=== PATIENT | female | born 1950 | race Caucasian/White ===

== ENCOUNTER 2017-09-09 11:30 | Emergency (ER) | payer MEDICARE, OTHER ==
[~2017-09-09 11:30] MED LIST: CALC500T6 PO; CHOL10005 PO; IBUP-56 PO; MAGNESIUM PO; MULT-1335 PO; TUMERIC PO; Tumeric PO; VITA-131 PO
--- NOTE | 2017-09-09 11:45 | ER Report ---
History and Physical Time Seen By MD: 11:43 HPI/ROS CHIEF COMPLAINT: Head injury HISTORY OF PRESENT ILLNESS: Patient is a 67-year-old female who was leading a horse but not riding. The horse started to run and she was trampled she did hit her head and lost consciousness. She is also complaining of some right elbow pain. She denies any difficulty breathing. She denies any nausea or vomiting at this time. She denies chest pain. She denies abdominal pain. She denies pelvic pain. She denies any lower extremity pain. Last tetanus was less than 5 years ago. REVIEW OF SYSTEMS: Respiratory: No cough, no dyspnea. Cardiovascular: No chest pain, no palpitations. Gastrointestinal: No vomiting, no abdominal pain. Musculoskeletal: Headache, right elbow pain Allergies: Coded Allergies: No Known Allergies (Verified Allergy, Mild, 09/09/17) Home Meds Reported Medications [Magnesium] No Conflict Check, 400 MG PO DAILY 01/13/17 Vitamin B Complex (VITAMIN B COMPLEX) 1 Each Tablet, 1 EACH PO DAILY 01/13/17 Multivitamin With Minerals (MULTIPLE VITAMIN) 1 Each Tablet, 1 EACH PO DAILY, TAB 01/13/17 Cholecalciferol (Vitamin D3) (VITAMIN D3) 1,000 Unit Tablet, 1000 UNIT PO DAILY , TAB 01/13/17 Calcium Carbonate (CALCIUM) 500 Mg Tablet, 500 MG PO DAILY 01/13/17 Ibuprofen (IBUPROFEN) 200 Mg Tablet, 1-2 TAB PO PRN, TAB 01/13/17 [Tumeric] No Conflict Check, 1 TBS PO DAILY 01/13/17 Past Medical/Surgical History Noncontributory towards his chief complaint Hx Smoking: No Smoking Status: Never Smoker Exposure to Second Hand Smoke?: No Hx Alcohol Use: Yes Constitutional Vital Sign - Last 24 Hours 09/09/17 09/09/17 09/09/17 09/09/17 11:30 11:45 12:00 12:15 Temp 98.5 Pulse 66 59 Resp 16 10 B/P (MAP) 150/77 150/77 (101) 127/69 (88) Pulse Ox 92 92 O2 Delivery Room Air 09/09/17 09/09/17 09/09/17 09/09/17 12:20 12:30 12:35 12:40 Pulse 59 57 60 Resp 6 27 10 B/P (MAP) 137/65 (89) Pulse Ox 95 93 94 09/09/17 09/09/17 09/09/17 09/09/17 12:55 13:00 13:10 13:25 Pulse 57 53 53 Resp 13 14 17 B/P (MAP) 119/61 (80) Pulse Ox 92 96 96 09/09/17 09/09/17 13:30 13:40 Resp 23 B/P (MAP) 110/58 (75) Pulse Ox 96 Physical Exam General Appearance: The patient is alert, has no immediate need for airway protection and no signs of toxicity. He has a 0.5 cm scalp laceration at the vertex of the cranium minimal active bleeding Eyes: Pupils equal and round no pallor or injection. ENT, Mouth: Mucous membranes are moist. Respiratory: There are no retractions, lungs are clear to auscultation. Cardiovascular: Regular rate and rhythm. [ ] Gastrointestinal: Abdomen is soft and non tender, no masses, bowel sounds normal. Neurological: GCS is 15 Skin: Warm and dry, no rashes. Musculoskeletal: Neck is supple non tender. Right elbow pain [ ]AL DIAGNOSIS: After history and physical exam differential diagnosis was considered for] [ ] Medical Decision Making EKG/Imaging Imaging FACILITY: [facility] PATIENT NAME: Debby Chaudhary : 1950 MR: [id number] V: [id number] EXAM DATE: ORDERING PHYSICIAN: ALHAJI SAEZ TECHNOLOGIST: Location: [facility] - [place] Patient: Debby Chaudhary : 1950 Visit/Account:[id number] Date of Sevice: 09/09/2017 EXAMINATION: CT Head without intravenous contrast CT Cervical spine without intravenous contrast HISTORY: Trauma. TECHNIQUE: Head: Axial images were obtained from the skull base to the vertex without intravenous contrast. Sagittal and coronal reformatted images are also submitted. Cervical spine: Axial images were obtained from the skull base through the upper thoracic spine without IV contrast administration. Coronal and sagittal reformatted images were obtained from the axial source data. One of the following dose optimization techniques was utilized in the performance of this exam: Automated exposure control; adjustment of the mA and/ or kV according to the patient's size; or use of an iterative reconstruction technique. Specific details can be referenced in the facility's radiology CT exam operational policy. COMPARISON: None available. FINDINGS: HEAD: Brain volume: Normal. Ventricles: Negative. Acute ischemic changes: None. Hemorrhage: None. Masses / edema: None. Kellogg-white: Negative. White matter: Negative. Vessels: Negative. Extra-axial: Negative. Calvarium / skull base: Negative. Visualized sinuses / orbits: Leftward nasal septal deviation. CERVICAL SPINE: Alignment: 3 mm of retrolisthesis of C3 over C4. Mild convex rightward curvature. Cranio-cervical junction: Mild degenerative changes. Otherwise negative. Vertebral bodies: Negative. Posterior elements: Mild multilevel facet hypertrophy. Solid fusion of the left C4-C5 facet joint. Hardware: None. Disc Spaces: Multilevel degenerative disc disease, most severe at C3-C4. Soft tissues: Negative. Visualized upper chest: Negative. IMPRESSION: 1. No acute intracranial abnormality. 2. No acute cervical spine fracture. 3. Leftward nasal septal deviation. 4. Multilevel degenerative disc disease and facet hypertrophy with 3 mm of retrolisthesis of C3 over C4 and mild convex rightward curvature. Report Dictated By: Gian Bledsoe MD at 09/09/2017 12:02 PM Report E-Signed By: Gian Bledsoe MD at 09/09/2017 1:03 PM WSN:[id number] FACILITY: [facility] PATIENT NAME: Debby Chaudhary : 1950 MR: [id number] V: [id number] EXAM DATE: ORDERING PHYSICIAN: ALHAJI SAEZ TECHNOLOGIST: Location: [facility] - [place] Patient: Debby Chaudhary : 1950 Visit/Account:[id number] Date of Sevice: 09/09/2017 ELBOW 3 VIEWS RIGHT Indication: Right elbow pain after horse accident injury. Comparison: None Available Findings: 3 views of the right elbow. No fracture or dislocation. No joint effusion. No bony lesion or degenerative changes. The soft tissues are unremarkable. IMPRESSION: 1. No acute osseous abnormality of the right elbow. Report Dictated By: Gilberto Long at 09/09/2017 1:41 PM Report E-Signed By: Gilberto Long at 09/09/2017 1:43 PM WSN:[id number] ED Course/Re-evaluation ED Course Procedure: Laceration repair. Verbal consent was obtained from the patient. The 0.5 cm laceration on the location occipital scalp the wound was cleansed, draped and explored to its base with a gloved finger. [ ] There were no deep structures involved. The wound was repaired with one single staple. The wound repair was simple. The procedure was performed by myself. Decision to Disposition Date: Sep 09, 2017 Decision to Disposition Time: 13:23 Depart Departure Latest Vital Signs Vital Signs Date Time Temp Pulse Resp B/P (MAP) Pulse Ox O2 Delivery O2 Flow Rate FiO2 09/09/17 13:40 23 96 09/09/17 13:30 110/58 (75) 09/09/17 13:25 53 09/09/17 11:30 98.5 Room Air Impression: Primary Impression: Occipital scalp laceration Condition: Improved Disposition: HOME OR SELF-CARE Patient Instructions: Laceration (ED), Staple Care (ED) Additional Instructions: Follow-up with your primary care provider in 3-5 days for staple removal Problem Qualifiers Primary Impression: Occipital scalp laceration Encounter type: initial encounter Qualified Codes: S01.01XA - Laceration without foreign body of scalp, initial encounter ALHAJI SAEZ MD Sep 09, 2017 11:45
[2017-09-09] MEDS ORDERED: TETRACAIN/EPI/LIDO GEL 3ML SYR TP ONE (12:05)
--- NOTE | 2017-09-09 13:08 | RADIOLOGY IMAGING REPORT ---
FACILITY: [facility] PATIENT NAME: Debby Chaudhary : 1950 MR: [id number] V: [id number] EXAM DATE: ORDERING PHYSICIAN: ALHAJI SAEZ TECHNOLOGIST: Location: Patient: Debby Chaudhary : 1950 Visit/Account:[id number] Date of Sevice: 09/09/2017 EXAMINATION: CT Head without intravenous contrast CT Cervical spine without intravenous contrast HISTORY: Trauma. TECHNIQUE: Head: Axial images were obtained from the skull base to the vertex without intravenous contrast. Sa gittal and coronal reformatted images are also submitted. Cervical spine: Axial images were obtained from the skull base through the upper thoracic spine with out IV contrast administration. Coronal and sagittal reformatted images were obtained from the axial source data. One of the following dose optimization techniques was utilized in the performance of this exam: Autom ated exposure control; adjustment of the mA and/or kV according to the patient's size; or use of an i terative reconstruction technique. Specific details can be referenced in the facility's radiology C T exam operational policy. COMPARISON: None available. FINDINGS: HEAD: Brain volume: Normal. Ventricles: Negative. Acute ischemic changes: None. Hemorrhage: None. Masses / edema: None. Kellogg-white: Negative. White matter: Negative. Vessels: Negative. Extra-axial: Negative. Calvarium / skull base: Negative. Visualized sinuses / orbits: Leftward nasal septal deviation. CERVICAL SPINE: Alignment: 3 mm of retrolisthesis of C3 over C4. Mild convex rightward curvature. Cranio-cervical junction: Mild degenerative changes. Otherwise negative. Vertebral bodies: Negative. Posterior elements: Mild multilevel facet hypertrophy. Solid fusion of the left C4-C5 facet joint. Hardware: None. Disc Spaces: Multilevel degenerative disc disease, most severe at C3-C4. Soft tissues: Negative. Visualized upper chest: Negative. IMPRESSION: 1. No acute intracranial abnormality. 2. No acute cervical spine fracture. 3. Leftward nasal septal deviation. 4. Multilevel degenerative disc disease and facet hypertrophy with 3 mm of retrolisthesis of C3 over C4 and mild convex rightward curvature. Report Dictated By: Gian Bledsoe MD at 09/09/2017 12:02 PM Report E-Signed By: Gian Bledsoe MD at 09/09/2017 1:03 PM WSN:[id number]
--- NOTE | 2017-09-09 13:08 | RADIOLOGY IMAGING REPORT ---
FACILITY: [facility] - [place] PATIENT NAME: Debby Chaudhary : 1950 MR: [id number] V: [id number] EXAM DATE: ORDERING PHYSICIAN: ALHAJI SAEZ TECHNOLOGIST: Location: [facility] - [place] Patient: Debby Chaudhary : 1950 Visit/Account:[id number] Date of Sevice: 09/09/2017 EXAMINATION: CT Head without intravenous contrast CT Cervical spine without intravenous contrast HISTORY: Trauma. TECHNIQUE: Head: Axial images were obtained from the skull base to the vertex without intravenous contrast. Sa gittal and coronal reformatted images are also submitted. Cervical spine: Axial images were obtained from the skull base through the upper thoracic spine with out IV contrast administration. Coronal and sagittal reformatted images were obtained from the axial source data. One of the following dose optimization techniques was utilized in the performance of this exam: Autom ated exposure control; adjustment of the mA and/or kV according to the patient's size; or use of an i terative reconstruction technique. Specific details can be referenced in the facility's radiology C T exam operational policy. COMPARISON: None available. FINDINGS: HEAD: Brain volume: Normal. Ventricles: Negative. Acute ischemic changes: None. Hemorrhage: None. Masses / edema: None. Kellogg-white: Negative. White matter: Negative. Vessels: Negative. Extra-axial: Negative. Calvarium / skull base: Negative. Visualized sinuses / orbits: Leftward nasal septal deviation. CERVICAL SPINE: Alignment: 3 mm of retrolisthesis of C3 over C4. Mild convex rightward curvature. Cranio-cervical junction: Mild degenerative changes. Otherwise negative. Vertebral bodies: Negative. Posterior elements: Mild multilevel facet hypertrophy. Solid fusion of the left C4-C5 facet joint. Hardware: None. Disc Spaces: Multilevel degenerative disc disease, most severe at C3-C4. Soft tissues: Negative. Visualized upper chest: Negative. IMPRESSION: 1. No acute intracranial abnormality. 2. No acute cervical spine fracture. 3. Leftward nasal septal deviation. 4. Multilevel degenerative disc disease and facet hypertrophy with 3 mm of retrolisthesis of C3 over C4 and mild convex rightward curvature. Report Dictated By: Gian Bledsoe MD at 09/09/2017 12:02 PM Report E-Signed By: Gian Bledsoe MD at 09/09/2017 1:03 PM WSN:[id number]
[2017-09-09 13:30] VITALS: BP 110/58
--- NOTE | 2017-09-09 13:46 | RADIOLOGY IMAGING REPORT ---
[place] [facility] [place] Debby Chaudhary : 1950 MR: [id number] V: [id number] EXAM DATE: ORDERING PHYSICIAN: ALHAJI SAEZ TECHNOLOGIST: Location: [facility] Patient: Debby Chaudhary : 1950 Visit/Account:[id number] Date of Sevice: 09/09/2017 ELBOW 3 VIEWS RIGHT Indication: Right elbow pain after horse accident injury. Comparison: None Available Findings: 3 views of the right elbow. No fracture or dislocation. No joint effusion. No bony lesion or degenera tive changes. The soft tissues are unremarkable. IMPRESSION: 1. No acute osseous abnormality of the right elbow. Report Dictated By: Gilberto Long at 09/09/2017 1:41 PM Report E-Signed By: Gilberto Long at 09/09/2017 1:43 PM WSN:[id number]
== END 2017-09-09 13:53 | disposition home or self-care (01) ==
LOC: ER 11:37
DX: S01.01XA Laceration without foreign body of scalp, initial encounter (principal); W55.19XA Other contact with horse, initial encounter
CPT/HCPCS: 70450; 72125; 99285

== ENCOUNTER → 2018-03-24 | Outpatient (CLI) | payer MEDICARE, OTHER ==
--- NOTE | 2018-03-25 09:58 | RADIOLOGY IMAGING REPORT ---
FACILITY: [facility] PATIENT NAME: CURT BAKER : [id number] MR: [id number] V: [id number] EXAM DATE: [id number] ORDERING PHYSICIAN: GABRIEL CASON TECHNOLOGIST: Gracia Maurice PROCEDURE:BILATERAL DIGITAL SCREENING MAMMOGRAM WITH CAD ASSISTED INTERPRETATION & 3D TOMOSYNTHESIS COMPARISON:Prior mammograms 08/25/16, 07/31/15, 06/26/14, 06/24/12. INDICATIONS:screening FINDINGS: There are scattered fibroglandular densities seen throughout the breasts. The parenchymal pattern has remained stable allowing for difference in mammographic technique & patient positioning. DIAGNOSTIC CATEGORY 1--NEGATIVE. RECOMMENDATIONS: ROUTINE MAMMOGRAM AND CLINICAL EVALUATION. IMPRESSION: BIRADS 1: Negative. No significant abnormality is seen. Dictated by: Nohemy Nunez M.D. on 03/24/2018 at 16:30 Transcribed by: PRIMO on 03/25/2018 at 8:46 Approved by: Nohemy Nunez M.D. on 03/25/2018 at 9:57 [facility]
== END ==
LOC: MAMO 00:21
PROVIDERS: ATTEND Nurse Practitioner Psychiatric/Mental Health
DX: Z12.31 Encounter for screening mammogram for malignant neoplasm of breast (principal)
CPT/HCPCS: 77063; 77067